=== PATIENT | male | born 1965 | race Caucasian/White ===

== ENCOUNTER 2018-07-21 10:36 | Emergency (ER) | payer SELFPAY ==
[~2018-07-21] VITALS: Ht 165.1 cm; Wt 83.9 kg
[2018-07-21 10:48] VITALS: BP 150/98; Ht 165.1 cm; Wt 83.9 kg
== END 2018-07-21 13:54 | disposition home or self-care (01) ==
LOC: ED 10:36
DX: M79.661 Pain in right lower leg (principal); M25.551 Pain in right hip; I10 Essential (primary) hypertension
CPT/HCPCS: J1100; J1885; Q0092